=== PATIENT | female | born 1950 | race Caucasian/White ===

== ENCOUNTER 2017-03-19 17:09 | Emergency (ER) | payer MEDICARE, BC ==
[~2017-03-19] VITALS: Ht 152.4 cm; Wt 65.0 kg
[2017-03-19 17:10] VITALS: BP 201/107; PULSE 92; RESP 20; TEMP 98.3; O2SAT 99
[2017-03-19 18:22] VITALS: BP_SYST 190; BP_DIAS 92; BP_DIAS 97; PULSE 100; PULSE 97; RESP 16; TEMP 98.1; O2SAT 99
--- NOTE | 2017-03-19 18:32 | PD ---
HPI Chief Complaint: Cardiac Complaint Time Seen by Provider: 18:27 Travel History International Travel<30 days: No Contact w/Intl Traveler<30days: No Traveled to known affect area: No History of Present Illness HPI 66-year-old female that presents to the ED for evaluation of hypertension, chest pain and headache. Per patient she has a chronic history of high blood pressure. Per patient she is originally from [place] and comes here during the springtime. Per patient she's had no issues with her blood pressure as it seems to come and go. Per patient she has episodes that appeared to be cyclical were she gets high blood pressure given taking her medications but she and so having hypertensive urgency. Per patient she's been seen by multiple providers in the past and she has no doctor in the area but she's been seen by her doctor in [place] for this multiple times. Per patient she's been having chest discomfort on the left side that comes and goes and feels like a pressure squeezing pain for the past couple of weeks. Per patient she did travel by plane about a month ago. Per patient the pain is not constant but comes and goes and nothing really seems to aggravate it. Per patient today she got scared because she started having the same pain on the chest as well as a headache that felt like there was fluid on her head and she took her blood pressure and he was in the 200s. She states that this has happened before with her hypertensive urgency some emergencies in the past. Per patient she's been switched to multiple medications because for whatever reason the blood pressure medications and symptoms to work. Per patient she's been worked up for adrenal tumors, subarachnoid hemorrhages another deceases multiple times in the past. She denies any chest pain right now. No headache at this time. the headache is pressure-like and feels like there is fluid in it. The patient pain is 5 out of 10 when it comes. She's been taking anything for this. PFSH Past Medical History Anxiety: Yes Endocrine: Yes (hypothyroid) Hypertension: Yes Psychiatric: Yes Social History Alcohol Use: No Tobacco Use: No Substance Use: No Allergies-Medications (Allergen,Severity, Reaction): Coded Allergies: Lortab (Verified Allergy, Severe, Nausea/Vomiting, 03/19/17) Morphine (Verified Allergy, Severe, Nausea/Vomiting, 03/19/17) Percocet (Verified Allergy, Severe, Nausea/Vomiting, 03/19/17) Sulfa (Verified Allergy, Severe, 03/19/17) Dilaudid (Verified Allergy, Unknown, Nausea/Vomiting, 03/19/17) Reported Meds & Prescriptions Reported Meds & Active Scripts Active Reported Scopolamine Patch 72 HR (Scopolamine) 1 Mg Patch 1 Patch T-DERMAL Q72H Telmisartan 80 Mg Tab 120 Mg PO DAILY Metronidazole 500 Mg Tab 500 Mg PO TID Alprazolam 0.5 Mg Tab 0.5 Mg PO DAILY PRN Zofran (Ondansetron HCl) 4 Mg Tab 4 Mg PO Q6HR PRN Amlodipine (Amlodipine Besylate) 5 Mg Tab 5 Mg PO DAILY Levothyroxine (Levothyroxine Sodium) 100 Mcg Tab 100 Mcg PO DAILY Review of Systems Except as stated in HPI: all other systems reviewed are Neg Physical Exam Narrative GENERAL: SKIN: Warm and dry. HEAD: Atraumatic. Normocephalic. EYES: Pupils equal and round 4 mm reactive to light and accommodation. No scleral icterus. No injection or drainage. ENT: No nasal bleeding or discharge. Mucous membranes pink and moist. Tongue is midline. No uvula deviation. NECK: Trachea midline. No JVD. CARDIOVASCULAR: Regular rate and rhythm. No murmurs, S3, S4. RESPIRATORY: No accessory muscle use. Clear to auscultation. Breath sounds equal bilaterally. GASTROINTESTINAL: Abdomen soft, non-tender, nondistended. Hepatic and splenic margins not palpable. MUSCULOSKELETAL: Extremities without clubbing, cyanosis, or edema. No obvious deformities. Full range of motion of the upper and lower extremities bilaterally. 2+ pulses bilaterally. NEUROLOGICAL: Awake and alert. No obvious cranial nerve deficits. Motor grossly within normal limits. Five out of 5 muscle strength in the arms and legs. Normal speech. Gait normal. Romberg test negative. PSYCHIATRIC: Appropriate mood and affect; insight and judgment normal. Data Data Last Documented VS Vital Signs Date Time Temp Pulse Resp B/P Pulse Ox O2 Delivery O2 Flow Rate FiO2 03/19/17 20:08 75 16 179/90 98 Room Air 03/19/17 18:22 98.1 Orders Electrocardiogram (03/19/17 ) Electrocardiogram (03/19/17 18:13) Basic Metabolic Panel (Bmp) (03/19/17 18:13) B-Type Natriuretic Peptide (03/19/17 18:13) Ckmb (Isoenzyme) Profile (03/19/17 18:13) Complete Blood Count With Diff (03/19/17 18:13) Magnesium (Mg) (03/19/17 18:13) Prothrombin Time / Inr (Pt) (03/19/17 18:13) Act Partial Throm Time (Ptt) (03/19/17 18:13) Troponin I (03/19/17 18:13) Chest, Single Ap (03/19/17 18:13) Ecg Monitoring (03/19/17 18:13) Bilateral Bp Monitoring (03/19/17 18:13) Iv Access Insert/Monitor (03/19/17 18:13) Oximetry (03/19/17 18:13) Oxygen Administration (03/19/17 18:13) Ct Brain W/O Iv Contrast(Rout) (03/19/17 ) D-Dimer (03/19/17 18:35) Aspirin (Aspirin) (03/19/17 19:00) CKMB (03/19/17 18:35) CKMB% (03/19/17 18:35) Clonidine (Catapres) (03/19/17 19:30) Labs Laboratory Tests Test 03/19/17 18:35 White Blood Count 8.3 TH/MM3 Red Blood Count 5.03 MIL/MM3 Hemoglobin 14.5 GM/DL Hematocrit 42.2 % Mean Corpuscular Volume 83.9 FL Mean Corpuscular Hemoglobin 28.8 PG Mean Corpuscular Hemoglobin 34.3 % Concent Red Cell Distribution Width 13.4 % Platelet Count 328 TH/MM3 Mean Platelet Volume 7.0 FL Neutrophils (%) (Auto) 64.3 % Lymphocytes (%) (Auto) 27.1 % Monocytes (%) (Auto) 7.8 % Eosinophils (%) (Auto) 0.5 % Basophils (%) (Auto) 0.3 % Neutrophils # (Auto) 5.3 TH/MM3 Lymphocytes # (Auto) 2.3 TH/MM3 Monocytes # (Auto) 0.6 TH/MM3 Eosinophils # (Auto) 0.0 TH/MM3 Basophils # (Auto) 0.0 TH/MM3 CBC Comment DIFF FINAL Differential Comment Prothrombin Time 10.4 SEC Prothromb Time International 0.9 RATIO Ratio Activated Partial 24.6 SEC Thromboplast Time D-Dimer Quantitative (PE/DVT) 0.27 MG/L FEU Sodium Level 139 MEQ/L Potassium Level 4.1 MEQ/L Chloride Level 101 MEQ/L Carbon Dioxide Level 31.2 MEQ/L Anion Gap 7 MEQ/L Blood Urea Nitrogen 10 MG/DL Creatinine 0.74 MG/DL Estimat Glomerular Filtration 79 ML/MIN Rate Random Glucose 104 MG/DL Calcium Level 9.9 MG/DL Magnesium Level 2.3 MG/DL Total Creatine Kinase 139 U/L Creatine Kinase MB 2.3 NG/ML Troponin I LESS THAN 0.02 NG/ML MDM Medical Decision Making Medical Screen Exam Complete: Yes Emergency Medical Condition: Yes Medical Record Reviewed: Yes Interpretation(s) CBC & BMP Diagram 03/19/17 18:35 Last Impressions Chest X-Ray 03/19/173 Signed Impressions: Service Date/Time: Sunday, March 19, 2017 18:30 - CONCLUSION: 1. No acute cardiopulmonary disease. Son Tran MD Head CT 03/19/17 0000 Signed Impressions: Service Date/Time: Sunday, March 19, 2017 18:55 - CONCLUSION: 1. No evidence of acute intracranial pathology. No masses are identified. Son Tran MD EKG show sinus rhythm with no sign of ischemia or arrythmia. Read by me and attending. troponin and CKMB negative Coags WNL Differential Diagnosis Cephalgia versus hypertensive crisis versus hypertensive emergency versus hypertension versus ACS versus chest pain Narrative Course 66-year-old female that presents to the ED for evaluation of hypertension and chest pain and headache. Patient was properly examined and was found to have signs and symptoms concerning for hypertensive crisis. Patient does have risk factors for ACS including diabetes, or history of smoking as well as severe hypertension. Labs and imaging ordered. Patient was given aspirin. Patient's blood pressure here in the room was 190 systolic. labs and imaging unremarcable here. My attending Dr Munroe had a long discussion with the patient and evaluated her. At this time this does not appear to be hypertensive crisis. Patients BP came down with clonidine well. She feels better. patient reassured. I did trauma counsellor to take her BP meds as prescribed as she has been taking only one pill instead of one and a half of what she is supposed to take she believes that she needs to wean herself out of her medications. She was also given a prescription for clonidine here. She agrees with plan. Patient was given information for [facility] in the area. See ED worsening symptoms. Follow with PCP. Procedures EKG Prior to Arrival: No Diagnosis Primary Impression: Hypertension Qualified Code: I10 - Essential hypertension Referrals: Catarino Yuen MD Patient Instructions: General Instructions Additional Instructions: Take meds as prescribed. Follow up with [facility]. See ED if worsening symptoms. Med/Other Pt SpecificInfo: Prescription(s) given Scripts Clonidine 0.1 Mg Tab0.1 Mg PO BID PRN (SBP>160, DBP>90) #20 TAB Ref 0 Prov:Nohemi Munroe MD 03/19/17 Disposition: 01 DISCHARGE HOME Condition: Stable Rene Shelton March 19, 2017 18:32
[2017-03-19 18:55] LABS: AUTOMATED NEUTROPHIL # 5.3 TH/MM3 (1.8-7.7); BASOPHIL % 0.3 % (0.0-2.0); EOSINOPHIL % 0.5 % (0.0-4.0); HEMATOCRIT 42.2 % (35.0-46.0); HEMO FLAGS DIFF FINAL; LYMPH % 27.1 % (9.0-44.0); LYMPHOCYTE # 2.3 TH/MM3 (1.0-4.8); MEAN CELL VOLUME 83.9 FL (80.0-100.0); MEAN CORPUSCULAR HEMOGLOBIN 28.8 PG (27.0-34.0); MEAN CORPUSCULAR HGB CONC 34.3 % (32.0-36.0); MONO % 7.8 % (0.0-8.0); NEUT % 64.3 % (16.0-70.0); PLATELET COUNT 328 TH/MM3 (150-450); RED BLOOD COUNT 5.03 MIL/MM3 (4.00-5.30); RED CELL DISTRIBUTION WIDTH 13.4 % (11.6-17.2); WHITE BLOOD COUNT 8.3 TH/MM3 (4.0-11.0)
[2017-03-19] MEDS ORDERED: ASPIRIN 325 MG TAB PO ONE (19:00)
[2017-03-19] MEDS ORDERED: LEVO100T5 PO (19:02)
[2017-03-19] MEDS ORDERED: ALPR0.5T3 PO (19:02)
[2017-03-19] MEDS ORDERED: SCOP1PAT2 T-DERMAL (19:02)
[2017-03-19] MEDS ORDERED: TELM1TAB2 PO (19:02)
[2017-03-19] MEDS ORDERED: METR500T10 PO (19:02)
[2017-03-19] MEDS ORDERED: ZOFR4TAB PO (19:02)
[2017-03-19] MEDS ORDERED: AMLO5TAB2 PO (19:02)
--- NOTE | 2017-03-19 19:06 | RADRPT ---
EXAM DATE/TIME: 03/19/2017 18:30 [facility] COMPARISON: No previous studies available for comparison. INDICATIONS : Hypertension and shortness of breath. MEDICAL HISTORY : Hypertension. Mitral valve prolapse. SURGICAL HISTORY : None. ENCOUNTER: Initial ACUITY: 1 day PAIN SCORE: 0/10 LOCATION: Bilateral chest FINDINGS: The cardiac silhouette is normal in transverse diameter. The lungs are free of acute parenchymal opac ity. No effusions are identified. A prominent epicardial fat-pad is likely present on the right. This could be confirmed by CT on elective basis. The aortic knob is prominent with tortuosity of the desc ending thoracic aorta. CONCLUSION: 1. No acute cardiopulmonary disease. Son Tran MD on March 19, 2017 at 19:04 Board Certified Radiologist. This report was verified electronically.
[2017-03-19 19:07] LABS: ANION GAP 7 MEQ/L (5-15); BICARBONATE 31.2 MEQ/L (21.0-32.0); BLOOD UREA NITROGEN 10 MG/DL (7-18); CHLORIDE 101 MEQ/L (98-107); GLOMERULAR FILTRATION RATE 79 ML/MIN (>89); MAGNESIUM 2.3 MG/DL (1.5-2.5); POTASSIUM 4.1 MEQ/L (3.5-5.1); SODIUM (NA) 139 MEQ/L (136-145)
--- NOTE | 2017-03-19 19:11 | RADRPT ---
EXAM DATE/TIME: 03/19/2017 18:55 [facility] COMPARISON: No previous studies available for comparison. INDICATIONS : Dizziness elavated blood pressure,head pain. RADIATION DOSE: 36.26 CTDIvol (mGy) MEDICAL HISTORY : Hypertension. SURGICAL HISTORY : None. ENCOUNTER: Initial ACUITY: 1 day PAIN SCALE: 3/10 LOCATION: cranial TECHNIQUE: Multiple contiguous axial images were obtained of the head. Using automated exposure control and adj ustment of the mA and/or kV according to patient size, radiation dose was kept as low as reasonably a chievable to obtain optimal diagnostic quality images. FINDINGS: CEREBRUM: The ventricles are normal for age. No evidence of midline shift, mass lesion, hemorrhage or acute in farction. No extra-axial fluid collections are seen. POSTERIOR FOSSA: The cerebellum and brainstem are intact. The 4th ventricle is midline. The cerebellopontine angle i s unremarkable. EXTRACRANIAL: The visualized portion of the orbits is intact. SKULL: The calvaria is intact. No evidence of skull fracture. CONCLUSION: 1. No evidence of acute intracranial pathology. No masses are identified. Son Tran MD on March 19, 2017 at 19:09 Board Certified Radiologist. This report was verified electronically.
[2017-03-19 19:12] LABS: CREATINE KINASE 139 U/L (26-192)
[2017-03-19 19:14] LABS: APTT (PATIENT) 24.6 SEC (24.3-30.1); INTERNATIONAL NORMALIZED RATIO 0.9 RATIO; PROTHROMBIN TIME - PATIENT 10.4 SEC (9.8-11.6)
[2017-03-19 19:24] LABS: CKMB 2.3 NG/ML (0.5-3.6)
[2017-03-19] MEDS ORDERED: cloNIDine HCL 0.1 MG TAB PO ONE (19:30)
[2017-03-19 20:08] VITALS: BP 179/90; PULSE 75; RESP 16; O2SAT 98
[2017-03-19] MEDS ORDERED: CLON0.1T PO (20:31)
--- NOTE | 2017-03-20 13:43 | EKG ---
Date Performed: 03/19/2017 Time Performed: 17:26:47 PTAGE: 66 years EKG: Sinus rhythm NORMAL ECG NO PREVIOUS TRACING DOCTOR: Barak Kang Interpretating Date/Time 03/20/2017 13:40:06
== END 2017-03-19 20:52 | disposition home or self-care (01) ==
LOC: NEPE 17:09
DX: I10 Essential (primary) hypertension (principal); R07.9 Chest pain, unspecified; R51 Headache
CPT/HCPCS: 70450; 71010; 80048; 82550; 82552; 83735; 83880; 84484; 85025; 85379; 85610; 85730; 93005